=== PATIENT | female | born 1930 | race Caucasian/White ===

== ENCOUNTER 2017-02-24 20:41 | Observation (INO) | payer MEDICARE, BC, MEDICAID ==
[2017-02-24] MEDS ORDERED: Sodium Chloride 0.9% 1,000 ML IV SCH (20:45)
--- NOTE | 2017-02-24 20:48 | EDM.PDOC ---
ED HPI GENERAL MEDICAL PROBLEM - General Stated Complaint: PT FELL Time Seen by Provider: 02/24/17 20:47 Source of Information: Reports: Patient, Family - History of Present Illness INITIAL COMMENTS - FREE TEXT/NARRATIVE: HISTORY AND PHYSICAL: History of present illness: []Patient presents at her family's urging She presents from [facility] where apparently this afternoon she had some left facial drooping and left upper extremity weakness, Dr. Holden was contacted he had no further recommendation this occurred at 2 PM per family, family reports this event as they witnessed Later this afternoon the patient was assisting another patient at [facility] and became entangled in a wheelchair and fell flat on her bottom, her family attributes this to stroke activity and she presents as above No motor weakness alert interactive talking no facial droop, she is very vocal that she herself does not want to be here and desires to return to [facility] No fever nausea vomiting chills sweats no chest pain shortness breath headache dizziness palpitation no bowel or urine symptoms Blood pressure was reported as 250/150 at [facility] this afternoon Her niece reports a different version as were her on a sitting at a table eating developed left facial droop was unable to swallow some Evgeny-Aid she was drinking and then fell to the left side, she states later on she had a fall for no apparent reason and does have concern for continued stroke as patient does have stroke history This may also be attributed to the patient being kind of stubborn and not using her walker Review of systems: As per history of present illness and below otherwise all systems reviewed and negative. Past medical history: As per history of present illness and as reviewed below otherwise noncontributory. Surgical history: As per history of present illness and as reviewed below otherwise noncontributory. Social history: No reported history of drug or alcohol abuse. Family history: As per history of present illness and as reviewed below otherwise noncontributory. Physical exam: HEENT: Atraumatic, normocephalic, pupils reactive, negative for conjunctival pallor or scleral icterus, mucous membranes moist, throat clear, neck supple, nontender, trachea midline. Lungs: Clear to auscultation, breath sounds equal bilaterally, chest nontender. Heart: S1S2, regular, negative for clicks, rubs, or JVD. Abdomen: Soft, nondistended, nontender. Negative for masses or hepatosplenomegaly. Negative for costovertebral tenderness. Pelvis: Stable nontender. Genitourinary: Deferred. Rectal: Deferred. Extremities: Atraumatic, negative for cords or calf pain. Neurovascular unremarkable. Neuro: Awake, alert, oriented. Cranial nerves II through XII unremarkable. Cerebellum unremarkable. Motor and sensory unremarkable throughout. Exam nonfocal. Diagnostics: []Lab as below EKG Chest [address] without contrast Therapeutics: []Labetalol 10 mg IV macrobid 100mg po Impression: []Hypertensive emergency resolved TIA symptoms by history, 8 hours prior to arrival Definitive disposition and diagnosis as appropriate pending reevaluation and review of above. - Related Data Allergies Allergy/AdvReac Type Severity Reaction Status Date / Time atorvastatin Allergy Dizziness Verified 02/24/17 20:59 atorvastatin calcium Allergy Dizziness Verified 02/24/17 20:59 [From Lipitor] celecoxib [From Celebrex] Allergy Dizziness Verified 02/24/17 20:59 Home Meds: Home Meds Acetaminophen [Tylenol] 500 mg PO Q4H PRN 10/12/15 [History] Allopurinol [Zyloprim] 200 mg PO DAILY 10/12/15 [History] Aspirin [Halfprin] 81 mg PO ONETIME 10/12/15 [History] Furosemide [Lasix] 40 mg PO BID 10/12/15 [History] Loperamide HCl [Anti-Diarrheal] 2 mg PO ASDIRECTED 10/12/15 [History] Metoprolol Tartrate [Lopressor] 25 mg PO ONETIME 10/12/15 [History] Multivitamin [One Daily] 1 each PO DAILY 10/12/15 [History] PEG 400/Hypromellose/Glycerin [Artificial Tears Drops] 15 ml OP DAILY 10/12/15 [ History] Potassium Chloride [Klor-Con M20] 20 meq PO DAILY 10/12/15 [History] Psyllium [Metamucil] 1.04 gm PO ASDIRECTED 10/12/15 [History] Rosuvastatin [Crestor] 20 mg PO BEDTIME 10/12/15 [History] Sertraline HCl 100 mg PO DAILY 10/12/15 [History] buPROPion [Wellbutrin] 75 mg PO BEDTIME 10/12/15 [History] Past Medical History HEENT History: Reports: Cataract, Hard of Hearing, Impaired Vision Cardiovascular History: Reports: Afib, CAD, Heart Failure, Heart Murmur, High Cholesterol, Hypertension, Prior Cardiac Arrest Respiratory History: Reports: None Gastrointestinal History: Reports: Chronic Constipation, Diverticulosis Genitourinary History: Reports: Renal Disease, UTI, 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 Hematologic History: Reports: None Immunologic History: Reports: None Oncologic (Cancer) History: Reports: None Dermatologic History: Reports: Cellulitis - Infectious Disease History Infectious Disease History: Reports: Chicken Pox, Measles, Mumps, Shingles - Past Surgical History HEENT Surgical History: Reports: Cataract Surgery Musculoskeletal Surgical History: Reports: Carpal Tunnel Social & Family History - Family History Family Medical History: Noncontributory - Tobacco Use Smoking Status *Q: Never Smoker - Recreational Drug Use Recreational Drug Use: No ED ROS GENERAL - Review of Systems Review Of Systems: ROS reveals no pertinent complaints other than HPI. ED EXAM, GENERAL - Physical Exam Exam: See Below Course - Vital Signs Last Recorded V/S: Last Vital Signs Temp 36.4 C 02/24/17 20:53 Pulse 58 L 02/24/17 22:31 Resp 18 02/24/17 22:31 BP 172/63 H 02/24/17 22:31 Pulse Ox 96 02/24/17 22:31 - Orders/Labs/Meds Orders: Active Orders 24 hr Category Date Time Status EKG Documentation Completion [RC] STAT Care 02/24/17 20:45 Active Chest 1V Frontal [CR] Stat Exams 02/24/17 20:45 Taken Head wo Cont [CT] Stat Exams 02/24/17 20:45 Taken CULTURE URINE [RM] Stat Lab 02/24/17 22:05 Received Sodium Chloride 0.9% [Normal Saline] 1,000 ml Med 02/24/17 20:45 Active IV STAT Medication Orders Sodium Chloride (Normal Saline) 1,000 mls @ 30 mls/hr IV STAT NORMA Last Admin: 02/24/17 20:59 Dose: 30 mls/hr Labs: Laboratory Tests 02/24/17 02/24/17 02/24/17 Range/Units 20:55 20:55 20:55 WBC (4.0-11.0) K/uL RBC (4.30-5.90) M/uL Hgb (12.0-16.0) g/dL Hct (36.0-46.0) % MCV (80.0-98.0) fL MCH (27.0-32.0) pg MCHC (31.0-37.0) g/dL RDW Std Deviation (28.0-62.0) fl RDW Coeff of Julia (11.0-15.0) % Plt Count (150-400) K/uL MPV (7.40-12.00) fL Neut % (Auto) (48.0-80.0) % Lymph % (Auto) (16.0-40.0) % [place] % (Auto) (0.0-15.0) % Eos % (Auto) (0.0-7.0) % Baso % (Auto) (0.0-1.5) % Neut # (Auto) (1.4-5.7) K/uL Lymph # (Auto) (0.6-2.4) K/uL [place] # (Auto) (0.0-0.8) K/uL Eos # (Auto) (0.0-0.7) K/uL Baso # (Auto) (0.0-0.1) K/uL Nucleated RBC % /100WBC Nucleated RBCs # K/uL INR 0.91 (0.86-1.11) Sodium 139 (136-146) mmol/L Potassium 4.4 (3.5-5.1) mmol/L Chloride 104 (98-110) mmol/L Carbon Dioxide 25 (21-31) mmol/L BUN 39 H (6.0-23.0) mg/dL Creatinine 2.7 H (0.6-1.5) mg/dL Est Cr Clr Drug Dosing 11.91 mL/min Estimated GFR (MDRD) 16.6 ml/min Glucose 77 (60-110) mg/dL Calcium 9.7 (8.8-10.8) mg/dL Total Bilirubin 0.3 (0.1-1.5) mg/dL AST 31 (5-40) IU/L ALT 17 (8-54) IU/L Alkaline Phosphatase 111 (40-150) Troponin I < 0.10 (0.0-0.29) NG/ML Total Protein 7.2 (6.0-8.0) g/dL Albumin 3.7 (3.4-4.8) g/dL Globulin 3.5 (2.0-3.5) g/dL Albumin/Globulin Ratio 1.1 L (1.3-2.8) Urine Color Urine Appearance Urine pH (5.0-8.0) Ur Specific [place] (1.001-1.035) Urine Protein (NEGATIVE) mg/dL Urine Glucose (UA) (NEGATIVE) mg/dL Urine Ketones (NEGATIVE) mg/dL Urine Occult Blood (NEGATIVE) Urine Nitrite (NEGATIVE) Urine Bilirubin (NEGATIVE) Urine Urobilinogen (<2.0) EU/dL Ur Leukocyte Esterase (NEGATIVE) Urine RBC (0-2/HPF) Urine WBC (0-5/HPF) Ur Epithelial Cells (NONE-FEW) Urine Bacteria (NEGATIVE) 02/24/17 02/24/17 Range/Units 21:02 22:03 WBC 6.61 (4.0-11.0) K/uL RBC 4.03 L (4.30-5.90) M/uL Hgb 12.2 (12.0-16.0) g/dL Hct 38.0 (36.0-46.0) % MCV 94.3 (80.0-98.0) fL MCH 30.3 (27.0-32.0) pg MCHC 32.1 (31.0-37.0) g/dL RDW Std Deviation 57.7 (28.0-62.0) fl RDW Coeff of Julia 17 H (11.0-15.0) % Plt Count 180 (150-400) K/uL MPV 10.40 (7.40-12.00) fL Neut % (Auto) 58.1 (48.0-80.0) % Lymph % (Auto) 23.4 (16.0-40.0) % [place] % (Auto) 11.0 (0.0-15.0) % Eos % (Auto) 7.0 (0.0-7.0) % Baso % (Auto) 0.5 (0.0-1.5) % Neut # (Auto) 3.8 (1.4-5.7) K/uL Lymph # (Auto) 1.6 (0.6-2.4) K/uL [place] # (Auto) 0.7 (0.0-0.8) K/uL Eos # (Auto) 0.5 (0.0-0.7) K/uL Baso # (Auto) 0.0 (0.0-0.1) K/uL Nucleated RBC % 0.0 /100WBC Nucleated RBCs # 0 K/uL INR (0.86-1.11) Sodium (136-146) mmol/L Potassium (3.5-5.1) mmol/L Chloride (98-110) mmol/L Carbon Dioxide (21-31) mmol/L BUN (6.0-23.0) mg/dL Creatinine (0.6-1.5) mg/dL Est Cr Clr Drug Dosing mL/min Estimated GFR (MDRD) ml/min Glucose (60-110) mg/dL Calcium (8.8-10.8) mg/dL Total Bilirubin (0.1-1.5) mg/dL AST (5-40) IU/L ALT (8-54) IU/L Alkaline Phosphatase (40-150) Troponin I (0.0-0.29) NG/ML Total Protein (6.0-8.0) g/dL Albumin (3.4-4.8) g/dL Globulin (2.0-3.5) g/dL Albumin/Globulin Ratio (1.3-2.8) Urine Color YELLOW Urine Appearance CLEAR Urine pH 6.0 (5.0-8.0) Ur Specific [place] 1.010 (1.001-1.035) Urine Protein 30 (NEGATIVE) mg/dL Urine Glucose (UA) NEGATIVE (NEGATIVE) mg/dL Urine Ketones NEGATIVE (NEGATIVE) mg/dL Urine Occult Blood SMALL H (NEGATIVE) Urine Nitrite NEGATIVE (NEGATIVE) Urine Bilirubin NEGATIVE (NEGATIVE) Urine Urobilinogen 0.2 (<2.0) EU/dL Ur Leukocyte Esterase LARGE (NEGATIVE) Urine RBC 0-3 (0-2/HPF) Urine WBC 145-165 (0-5/HPF) Ur Epithelial Cells RARE (NONE-FEW) Urine Bacteria FEW (NEGATIVE) Meds: Medications Generic Name Dose Route Start Last Admin Trade Name Freq PRN Reason Stop Dose Admin Sodium Chloride 1,000 mls @ 30 mls/hr 02/24/17 20:45 02/24/17 20:59 Normal Saline IV 30 mls/hr STAT NORMA Administration Discontinued Medications Generic Name Dose Route Start Last Admin Trade Name Ania PRN Reason Stop Dose Admin Nitrofurantoin Macrocrystals 100 mg 02/24/17 22:19 02/24/17 22:40 Macrobid PO 02/24/17 22:20 100 mg ONETIME ONE Administration Departure - Departure Time of Disposition: 22:53 Disposition: Refer to Observation Condition: Fair Clinical Impression: TIA (transient ischemic attack) UTI (urinary tract infection) Qualifiers: Urinary tract infection type: site unspecified Hematuria presence: without hematuria Qualified Code(s): N39.0 - Urinary tract infection, site not specified - Discharge Information - My Orders Last 24 Hours: My Active Orders 02/24/17 20:45 EKG Documentation Completion [RC] STAT Chest 1V Frontal [CR] Stat Head wo Cont [CT] Stat Sodium Chloride 0.9% [Normal Saline] 1,000 ml IV STAT 02/24/17 22:05 CULTURE URINE [RM] Stat - Assessment/Plan Last 24 Hours: My Active Orders 02/24/17 20:45 EKG Documentation Completion [RC] STAT Chest 1V Frontal [CR] Stat Head wo Cont [CT] Stat Sodium Chloride 0.9% [Normal Saline] 1,000 ml IV STAT 02/24/17 22:05 CULTURE URINE [RM] Stat
[2017-02-24] MEDS ORDERED: Nitrofurantoin Monohydrate/Macrocrystalline 100 MG Cap PO ONE (22:19)
--- NOTE | 2017-02-25 07:41 | PCM.HP ---
H&P History of Present Illness - General Date of Service: 02/25/17 Admit Problem/Dx: Admission Diagnosis/Problem Admission Diagnosis/Problem TIA, Transient ischemic attack Source of Information: Patient, Family (Called Jessa gomez, for history and any concerns.) History Limitations: Reports: Other (short term memory loss) - History of Present Illness Initial Comments - Free Text/Narative: This 86 year old female with pmh Stage 4 CKD, CAD, COPD, HTN, PVD and CVA in November presented to the ED last night after having a fall at [facility]. NieceJessa, reports yesterday patient had some intermittent confusion and unsteady gait. She did fall, landing on her bottom and did not hit her head. At breakfast and lunch she was disoriented and spilled her juice. Jessa was concerned and wanted her to be evaluated and didn't feel safe leaving her at [facility] because her room is so far away from the nurses station. She reports she did have a stroke in November and her memory and attitude is very different since then, she does become disoriented and has unsteady gait, it just appeared worse yesterday. In the ED all labs WNL, BUN 39, Cr 2.7 which is near baseline. CXR negative. Head CT reported age related atrophy and chronic microvascular disease. No acute abnormality or significant change from prior head CT. EKG SR no ST segment changes and no blocks, rate 60s UA have large amount of leukocyte esterase, WBC 145-165 and few bacteria, she was treated with Macrobid. She was admitted for unsteady gait and confusion. PCP, Dr Holden. no pain verbalized Pain Score (Numeric/FACES): 0 - Related Data Allergies/Adverse Reactions: Allergies Allergy/AdvReac Type Severity Reaction Status Date / Time atorvastatin Allergy Dizziness Verified 02/24/17 20:59 atorvastatin calcium Allergy Dizziness Verified 02/24/17 20:59 [From Lipitor] celecoxib [From Celebrex] Allergy Dizziness Verified 02/24/17 20:59 Home Medications: Home Meds Acetaminophen [Tylenol] 500 mg PO Q4H PRN 10/12/15 [History] Allopurinol [Zyloprim] 200 mg PO DAILY 10/12/15 [History] Furosemide [Lasix] 40 mg PO BID 10/12/15 [History] Loperamide HCl [Anti-Diarrheal] 2 mg PO ASDIRECTED PRN 10/12/15 [History] Multivitamin [One Daily] 1 each PO DAILY 10/12/15 [History] PEG 400/Hypromellose/Glycerin [Artificial Tears Drops] 15 ml OP DAILY 10/12/15 [ History] Potassium Chloride [Klor-Con M20] 20 meq PO DAILY 10/12/15 [History] Psyllium [Metamucil] 1.04 gm PO ASDIRECTED 10/12/15 [History] Rosuvastatin [Crestor] 40 mg PO BEDTIME 10/12/15 [History] Sertraline HCl 150 mg PO DAILY 10/12/15 [History] buPROPion [Wellbutrin] 75 mg PO BID 10/12/15 [History] Acetaminophen 500 mg PO Q4HR PRN 02/25/17 [History] Aspirin 325 mg PO DAILY 02/25/17 [History] Cephalexin [IJD: Cephalexin] 500 mg PO Q12H #11 capsule 02/25/17 [Rx] Hydrochlorothiazide 25 mg PO DAILY #15 tablet 02/25/17 [Rx] Metoprolol Succinate 25 mg PO DAILY 02/25/17 [History] Ondansetron [Zofran ODT] 4 mg PO Q4H PRN 02/25/17 [History] Past Medical History HEENT History: Reports: Cataract, Hard of Hearing, Impaired Vision Cardiovascular History: Reports: Afib, CAD, Heart Failure, Heart Murmur, High Cholesterol, Hypertension, Prior Cardiac Arrest Respiratory History: Reports: Asthma, COPD, Pneumonia, Recurrent Gastrointestinal History: Reports: Chronic Constipation, Diverticulosis, Irritable Bowel Syndrome Genitourinary History: Reports: Chronic Renal Insuffiency, Renal Disease, UTI, 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 Hematologic History: Reports: None Immunologic History: Reports: None Oncologic (Cancer) History: Reports: None Dermatologic History: Reports: Cellulitis - Infectious Disease History Infectious Disease History: Reports: Chicken Pox, Measles, Mumps, Shingles - Past Surgical History HEENT Surgical History: Reports: Cataract Surgery Cardiovascular Surgical History: Reports: None Respiratory Surgical History: Reports: None GI Surgical History: Reports: None Neurological Surgical History: Reports: None Musculoskeletal Surgical History: Reports: Carpal Tunnel Dermatological Surgical History: Reports: None Social & Family History - Family History Family Medical History: Noncontributory - Tobacco Use Smoking Status *Q: Former Smoker Used Tobacco, but Quit: Yes Month Tobacco Last Used: 2016 - Recreational Drug Use Recreational Drug Use: No - Living Situation & Occupation Living situation: Reports: Extended Care Facility Occupation: Retired Social History Comment: Carolineece Jessa helps with cares. H&P Review of Systems - Review of Systems: Review Of Systems: See Below Free Text/Narrative: Patient is slightly confused and aware of why she is in the hospital, "I fell yesterday tripping over my wheelchair, but i just landed on my butt". General: Reports: No Symptoms. Denies: Fever, Chills, Malaise HEENT: Reports: No Symptoms. Denies: Eye Pain, Headaches, Hearing Changes, Visual Changes Pulmonary: Reports: No Symptoms. Denies: Shortness of Breath, Cough, Sputum Cardiovascular: Reports: No Symptoms. Denies: Chest Pain, Palpitations, Dyspnea on Exertion, Edema Gastrointestinal: Reports: No Symptoms. Denies: Abdominal Pain, Black Stool, Bloody Stool, Nausea, Vomiting Genitourinary: Reports: No Symptoms. Denies: Dysuria, Frequency, Burning, Urgency Musculoskeletal: Reports: No Symptoms Skin: Reports: No Symptoms Psychiatric: Reports: Confusion (intermittent), Agitation (Jessa, she can slap and hit nursing staff) Neurological: Reports: Difficulty Walking. Denies: Numbness Hematologic/Lymphatic: Reports: No Symptoms Immunologic: Reports: No Symptoms Exam - Exam Exam: See Below - Vital Signs Vital Signs: Last Vital Signs Temp 96.8 F 02/25/17 04:00 Pulse 56 L 02/25/17 04:00 Resp 18 02/25/17 04:00 BP 167/74 H 02/25/17 04:00 Pulse Ox 93 L 02/25/17 04:00 Weight: 77.7 kg - Exam General: Alert, Oriented (x2, reoriented to place easily.), Cooperative HEENT: Conjunctiva Clear, Hearing Intact, Mucosa Moist & [place], Nares Patent, Pupils Equal Lungs: Clear to Auscultation, Normal Respiratory Effort Cardiovascular: Regular Rate, Regular Rhythm, Normal S1, Normal S2. No: Systolic Murmur Back Exam: Normal Inspection, Full Range of Motion, NT Extremities: Normal Inspection, Normal Pulses Neurological: Cranial Nerves Intact, Reflexes Equal Bilateral Neuro Extensive - Mental Status: Alert, Normal Mood/Affect, Normal Cognition, Disorientation to Place (reoriented easily), Memory Loss-Remote Events Neuro Extensive - Motor, Sensory, Reflexes: Abnormal Gait (unsteady, needs assistance of walker.). No: Ataxia, Tongue Deviation (L), Tongue Deviation (R) , Total Aphasia, Facial palsy (L), Facial Palsy (R), Facial Palsy w Forehead, Hemeplagia (R), Hemeplagia (L), Abnormal Finger to Nose, Abnormal Sensation Psychiatric: Alert, Normal Affect, Normal Mood. No: Agitated - Patient Data Lab Results Last 24 hrs: Laboratory Results - last 24 hr 02/25/17 02/25/17 Range/Units 04:35 04:35 WBC 5.72 (4.0-11.0) K/uL RBC 3.59 L (4.30-5.90) M/uL Hgb 11.1 L (12.0-16.0) g/dL Hct 33.6 L (36.0-46.0) % MCV 93.6 (80.0-98.0) fL MCH 30.9 (27.0-32.0) pg MCHC 33.0 (31.0-37.0) g/dL RDW Std Deviation 56.8 (28.0-62.0) fl RDW Coeff of Julia 17 H (11.0-15.0) % Plt Count 173 (150-400) K/uL MPV 10.40 (7.40-12.00) fL Neut % (Auto) 56.7 (48.0-80.0) % Lymph % (Auto) 22.4 (16.0-40.0) % [place] % (Auto) 11.5 (0.0-15.0) % Eos % (Auto) 8.7 H (0.0-7.0) % Baso % (Auto) 0.7 (0.0-1.5) % Neut # (Auto) 3.2 (1.4-5.7) K/uL Lymph # (Auto) 1.3 (0.6-2.4) K/uL [place] # (Auto) 0.7 (0.0-0.8) K/uL Eos # (Auto) 0.5 (0.0-0.7) K/uL Baso # (Auto) 0.0 (0.0-0.1) K/uL Nucleated RBC % 0.0 /100WBC Nucleated RBCs # 0 K/uL Sodium 140 (136-146) mmol/L Potassium 3.7 (3.5-5.1) mmol/L Chloride 107 (98-110) mmol/L Carbon Dioxide 23 (21-31) mmol/L BUN 36 H (6.0-23.0) mg/dL Creatinine 2.4 H (0.6-1.5) mg/dL Est Cr Clr Drug Dosing 12.23 mL/min Estimated GFR (MDRD) 19.1 ml/min Glucose 95 (60-110) mg/dL Calcium 9.0 (8.8-10.8) mg/dL Result Diagrams: 02/25/17 04:35 02/25/17 04:35 EKG INTERPRETATION EKG Date: 02/24/17 Rhythm: NSR Rate (Beats/Min): 60 P-Wave: Present QRS: Normal ST-T: Normal QT: Normal *Q Meaningful Use (ADM) - VTE *Q VTE Criteria *Q: - Stroke *Q Stroke Criteria *Q: - AMI *Q AMI Criteria *Q: - Problem List (1) UTI (urinary tract infection) SNOMED Code(s): 50235570 ICD Code: N39.0 - URINARY TRACT INFECTION, SITE NOT SPECIFIED Status: Acute Current Visit: Yes Qualifiers: Urinary tract infection type: acute cystitis Hematuria presence: without hematuria Qualified Code(s): N30.00 - Acute cystitis without hematuria (2) History of CVA (cerebrovascular accident) SNOMED Code(s): 292768888 ICD Code: Z86.73 - PRSNL HX OF TIA (TIA), AND CEREB INFRC W/O RESID DEFICITS Status: Chronic Current Visit: Yes Problem Details: November 2016 (3) COPD (chronic obstructive pulmonary disease) SNOMED Code(s): 80104753 ICD Code: J44.9 - CHRONIC OBSTRUCTIVE PULMONARY DISEASE, UNSPECIFIED Status : Chronic Current Visit: Yes Qualifiers: COPD type: chronic bronchitis Chronic bronchitis type: unspecified Qualified Code(s): J42 - Unspecified chronic bronchitis (4) HTN (hypertension) SNOMED Code(s): 70684965 ICD Code: I10 - ESSENTIAL (PRIMARY) HYPERTENSION Status: Chronic Current Visit: Yes Qualifiers: Hypertension type: essential hypertension Qualified Code(s): I10 - Essential (primary) hypertension (5) CKD (chronic kidney disease) stage 4, GFR 15-29 ml/min SNOMED Code(s): 076396424 ICD Code: N18.4 - CHRONIC KIDNEY DISEASE, STAGE 4 (SEVERE) Status: Chronic Current Visit: Yes (6) Gout SNOMED Code(s): 18816217 ICD Code: M10.9 - GOUT, UNSPECIFIED Status: Chronic Current Visit: Yes Qualifiers: Gout site: unspecified site Chronicity: chronic (7) CAD (coronary artery disease) SNOMED Code(s): 11642343 ICD Code: I25.10 - ATHSCL HEART DISEASE OF [place] CORONARY ARTERY W/O ANG PCTRS Status: Chronic Current Visit: Yes Qualifiers: Coronary Disease-Associated Artery/Lesion type: enterprise artery [place] vs. transplanted heart: enterprise heart Associated angina: without angina Qualified Code(s): I25.10 - Atherosclerotic heart disease of [place] coronary artery without angina pectoris Problem List Initiated/Reviewed/Updated: Yes Orders Last 24hrs: Active Orders 24 hr Category Date Time Status Telemetry Monitoring [Cardiac Monitoring] [RC] . Care 02/24/17 23:56 Active DIRECTED Medication Orders Sodium Chloride (Normal Saline) 1,000 mls @ 30 mls/hr IV STAT NORMA Last Admin: 02/24/17 20:59 Dose: 30 mls/hr Assessment/Plan Comment:: This 86 year old female admitted with UTI, confusion and fall 1. UTI: Will start keflex. UC pending. Has hx of recurrent UTIs. Could be cause of increase confusion and exacerbating residual effects of recent stroke. 2. Unsteady gait/fall: Will have PT evaluate and order PT/OT to eval and treat at [facility] 3. CAD: Continue Crestor and ASA 4. HTN: Continue Lasix and Metoprolol. BP has improved since admission, 160 SBP. VTE: Heparin Dispo: Possible DC this afternoon. DIscharge plan: Spoke with shayne Germain, who is POA. Does not want extensive work up for stroke , she was concerned about fall risk with returning to [facility] and having a room so far away from the nurses. We will continue treatment for UTI. BP has been elevated during stay, but patient remains asymptomatic and is questioning why she is still here. Patient is confused intermittently and is easily agitated with cares. Will start HCTZ 25 mg now. I spoke with Dr. Holden, PCP who will futher manage BP as outpatient since this is asymptomatic. RUDDY Germain is also contemplating Hospice care since cares have become more of a hassel and aggravating factor for Ruth. Jessa would like to see her more comfortable and content. Will send home with HCTZ and Keflex for 5 days for UTI.
[2017-02-25] MEDS ORDERED: Cephalexin 500 MG Cap PO SCH (09:00)
[2017-02-25] MEDS ORDERED: Acetaminophen 500 MG Tab PO PRN (10:25)
[2017-02-25] MEDS ORDERED: Furosemide 40 MG Tab PO SCH (10:30)
[2017-02-25] MEDS ORDERED: Sertraline 50 MG Tab PO SCH (10:30)
[2017-02-25] MEDS ORDERED: Multivitamin Tab PO SCH (10:30)
[2017-02-25] MEDS ORDERED: Allopurinol 100 MG Tab PO SCH (10:30)
[2017-02-25] MEDS ORDERED: Metoprolol Succinate 25 MG Tab.ER PO SCH (10:30)
[2017-02-25] MEDS ORDERED: Aspirin 325 MG Tab PO SCH (10:30)
[2017-02-25] MEDS ORDERED: Potassium Chloride 20 MEQ Tab.ER PO SCH (10:30)
--- NOTE | 2017-02-25 10:38 | CT ---
EXAM DATE: 02/24/17 PATIENT'S AGE: 86 Patient: CALVIN CISNEROS Facility: [place], [place] Site . Site : 1930 Study: CT Head [id number]/20/2017 9:19:25 PM Ordering Physician: Doctor Madison Final Report: INDICATION: Syncope. TECHNIQUE: CT Head without i.v. contrast. COMPARISON: Prior head CT dated 10/12/2015. FINDINGS: CSF spaces: Within normal limits for age. Underlying atrophy with widening of sulci and lateral ventricles. Brain parenchyma: Mild diffuse cortical atrophy is noted. There are low attenuation white matter changes, likely due to chronic microvascular disease. The brain parenchyma is normal in appearance with preservation of the starks- white matter junction. No sign of mass, hemorrhage, or midline shift seen. Prior left basal ganglia lacunar infarct, unchanged. Skull base and calvarium: The visualized paranasal sinuses are well aerated. The mastoid air cells are clear. The visualized orbits are grossly unremarkable. No skull fractures are seen. Extensive calcified plaque involving the intracranial internal carotid arteries. IMPRESSION: 1. Age-related atrophy and chronic microvascular disease. No acute abnormality or significant change from prior head CT. Dictated by Kem Hudson MD @ 02/24/2017 9:45:38 PM Dictated by: Kem Hudson MD @ 02/24/2017 21:45:45 (Electronic Signature) Report Signed by Proxy. [facility]
--- NOTE | 2017-02-25 10:39 | CR ---
EXAM DATE: 02/24/17 PATIENT'S AGE: 86 Patient: CALVIN CISNEROS Facility: [place], [place] Site . Site : 1930 Study: XRay Chest [id number]/20/2017 9:26:44 PM Ordering Physician: Bibi Yusuf Final Report: INDICATION: Syncope. TECHNIQUE: Chest radiograph 1 view COMPARISON: 07/09/2011. FINDINGS: Cardiovascular and mediastinum: The heart silhouette is normal in size and morphology. The mediastinum is normal in appearance. Lungs and pleural spaces: Both lungs are unremarkable in appearance. No sign of pleural effusion seen. No pneumothorax is identified. Bones and soft tissues: No significant findings. IMPRESSION: 1. No acute abnormality. Dictated by Kem Hudson MD @ 02/24/2017 9:47:36 PM Dictated by: Kem Hudson MD @ 02/24/2017 21:47:44 (Electronic Signature) Report Signed by Proxy. [facility]
[2017-02-25] MEDS ORDERED: cloNIDine 0.1 MG Tab PO ONE (13:01)
[2017-02-25 13:06] VITALS: BP 200/90
[2017-02-25] MEDS ORDERED: Hydrochlorothiazide 25 MG Tab PO ONE (13:12)
[2017-02-25] MEDS ORDERED: Rosuvastatin 10 MG Tab PO SCH (21:00)
== END 2017-02-25 13:30 ==
LOC: MW.ED 20:41 → MW.MS 22:54
PROVIDERS: ADMIT Internal Medicine; ATTEND Internal Medicine
DX: N39.0 Urinary tract infection, site not specified (principal); J44.9 Chronic obstructive pulmonary disease, unspecified; R26.81 Unsteadiness on feet; I25.10 Atherosclerotic heart disease of native coronary artery without angina pectoris; I13.0 Hypertensive heart and chronic kidney disease with heart failure and stage 1 through stage 4 chronic kidney disease, or unspecified chronic kidney disease; N18.4 Chronic kidney disease, stage 4 (severe); M10.9 Gout, unspecified; I50.9 Heart failure, unspecified; I73.9 Peripheral vascular disease, unspecified; I48.91 Unspecified atrial fibrillation; E78.00 Pure hypercholesterolemia, unspecified; K59.09 Other constipation; K58.9 Irritable bowel syndrome, unspecified; G30.9 Alzheimer's disease, unspecified; F02.80 Dementia in other diseases classified elsewhere, unspecified severity, without behavioral disturbance, psychotic disturbance, mood disturbance, and anxiety; F41.9 Anxiety disorder, unspecified; F32.9 Major depressive disorder, single episode, unspecified; Z88.6 Allergy status to analgesic agent; Z88.8 Allergy status to other drugs, medicaments and biological substances; Z79.82 Long term (current) use of aspirin; Z79.899 Other long term (current) drug therapy; Z86.73 Personal history of transient ischemic attack (TIA), and cerebral infarction without residual deficits; Z87.01 Personal history of pneumonia (recurrent); Z87.440 Personal history of urinary (tract) infections; Z87.891 Personal history of nicotine dependence; Z98.49 Cataract extraction status, unspecified eye; Z98.890 Other specified postprocedural states
CPT/HCPCS: 36415; 70450; 71010; 80048; 80053; 81001; 84484; 85025; 85610; 87086; 93005; 96360; 96361; 99285; A9270; G0378; J7040